=== PATIENT | male | born 1975 | race Caucasian/White ===

== ENCOUNTER 2022-05-25 15:58 | Emergency (ER) | payer OTHER ==
[~2022-05-25] VITALS: Ht 182.9 cm; Wt 129.3 kg
[2022-05-25] MEDS ORDERED: BENADRYL (16:14)
[2022-05-25] MEDS ORDERED: MELATONIN (16:14)
--- NOTE | 2022-05-25 16:30 | NUR ---
Pt arrived w/ c/o R-sided lower back pain, -11/12, started 0800 today[address] Perez for MSE.
[2022-05-25 16:44] LABS: *BILIRUBIN,URIN NEGATIVE (NEGATIVE); *BLOOD, URINE 2+ (NEGATIVE); *CLARITY,URINE CLEAR (CLEAR); *COLOR,URINE YELLOW (YELLOW); *KETONES,URINE NEGATIVE (NEGATIVE); *UROBILINOGEN,URINE 0.2 E.U./dl (NORMAL); LEUKOCYTE ESTERASE ,URINE NEGATIVE (NEGATIVE); NITRITE, URINE NEGATIVE (NEGATIVE); PH,URINE 5.5 (5.0-8.0); UGLUCOSE NEGATIVE (NEGATIVE)
[2022-05-25 16:47] LABS: HEMATOCRIT 42.7 % (36.7-47.1); MEAN CORPUSCULAR HEMOGLOBIN 29.3 uug (23.8-33.4); MEAN CORPUSCULAR VOLUME 86.1 fL (73.0-96.2); PLATELET COUNT (AUTO) 211 K/uL (152-348)
[2022-05-25 16:59] LABS: CREATININE 0.9 mg/dL (0.6-1.3); POTASSIUM 3.3 mmol/L (3.5-5.1)
[2022-05-25 17:05] LABS: BILIRUBIN,DIRECT 0.1 mg/dL (0.0-0.2); BILIRUBIN,TOTAL 0.4 mg/dL (0.2-1.0); TOTAL PROTEIN, SERUM 8.1 g/dL (6.4-8.2)
[2022-05-25] MEDS ORDERED: KETOROLAC TROMETHAMINE 30 MG INJ ONE (17:55)
[2022-05-25] MEDS ORDERED: KETOROLAC TROMETHAMINE 15 MG INJ ONE (17:56)
[2022-05-25] MEDS ORDERED: KETOROLAC TROMETHAMINE 15 MG INJ IM ONE (18:00)
--- NOTE | 2022-05-25 18:36 | NUR ---
Patient discharged to home in stable condition. Written and verbal after care instructions given. Patient verbalizes understanding of instructions. Stressed follow up or return to ER for worsening s/s.
[2022-05-25 18:37] VITALS: BP 145/70
[2022-05-25 21:58] LABS: BACTERIA,URINE NONE SEEN /HPF (NONE SEEN); RBC,URINE 20-50 /HPF (0-3); SQUAMOUS EPITHELIAL CELL,UR FEW /HPF (NONE SEEN); WBC,URINE 0-3 /HPF (0-3)
== END 2022-05-25 18:38 | disposition home or self-care (01) ==
LOC: ER 15:58
DX: R10.9 Unspecified abdominal pain (principal); R31.29 Other microscopic hematuria; R74.02 Elevation of levels of lactic acid dehydrogenase [LDH]; K76.0 Fatty (change of) liver, not elsewhere classified; K76.89 Other specified diseases of liver; Z90.49 Acquired absence of other specified parts of digestive tract; Z88.1 Allergy status to other antibiotic agents; Z88.2 Allergy status to sulfonamides; Z88.8 Allergy status to other drugs, medicaments and biological substances; Z72.0 Tobacco use
CPT/HCPCS: 99284; 74176; 80076; 80048; 81001; 83690; 85025; 36415; 96372; 87040; J1885; A4663

== ENCOUNTER 2022-05-31 17:58 | Emergency (ER) | payer OTHER ==
[~2022-05-31] VITALS: Ht 182.9 cm; Wt 129.3 kg
[~2022-05-31 17:58] MED LIST: BENADRYL; MELATONIN
[2022-05-31] MEDS ORDERED: DOXYCYCLINE HYCLATE 100 MG TABLET ONE (19:40)
[2022-05-31] MEDS ORDERED: DOXY100C5 PO (19:44)
[2022-05-31] MEDS ORDERED: DOXYCYCLINE HYCLATE 100 MG TABLET PO ONE (19:45)
--- NOTE | 2022-05-31 19:49 | NUR ---
MD at bedside, informed of plan of care, medicated as per order and aware will be discharged home. ACI given at this time, remains stable for discharge, states understanding.
[2022-05-31 19:51] VITALS: BP 143/96
== END 2022-05-31 19:51 | disposition home or self-care (01) ==
LOC: ER 17:58
DX: L03.112 Cellulitis of left axilla (principal); Z72.0 Tobacco use; Z88.1 Allergy status to other antibiotic agents; Z88.2 Allergy status to sulfonamides; Z88.8 Allergy status to other drugs, medicaments and biological substances
CPT/HCPCS: A4663

== ENCOUNTER 2022-08-06 10:51 | Emergency (ER) | payer OTHER ==
[~2022-08-06] VITALS: Ht 180.3 cm; Wt 124.7 kg
[~2022-08-06 10:51] MED LIST changes: +DOXY100C5 PO
--- NOTE | 2022-08-06 11:21 | NUR ---
PT IS IN ROOM #4B. DR RAMOS EVALUATED THE PT.
[2022-08-06] MEDS ORDERED: DEXAMETHASONE SOD PHOSPHATE 4 MG INJ IM ONE (11:30)
[2022-08-06] MEDS ORDERED: LIDOCAINE 5% PATCH TD ONE ×2 (11:30→11:39)
[2022-08-06] MEDS ORDERED: KETOROLAC TROMETHAMINE 15 MG INJ IM ONE (11:30)
[2022-08-06] MEDS ORDERED: DIAZEPAM 2 MG TABLET PO ONE (11:30)
[2022-08-06] MEDS ORDERED: DIAZEPAM 5 MG TABLET ONE (11:40)
[2022-08-06] MEDS ORDERED: KETOROLAC TROMETHAMINE 15 MG INJ ONE (11:40)
[2022-08-06] MEDS ORDERED: DEXAMETHASONE SOD PHOSPHATE 10 MG INJ ONE (11:40)
[2022-08-06] MEDS ORDERED: PRED20TA PO (12:25)
[2022-08-06] MEDS ORDERED: DIAZ5TAB PO (12:25)
--- NOTE | 2022-08-06 12:40 | NUR ---
Gave pt RX and d/c instructions, verbalized understanding.
== END 2022-08-06 13:13 | disposition home or self-care (01) ==
LOC: ER 10:51
DX: M54.42 Lumbago with sciatica, left side (principal); F17.210 Nicotine dependence, cigarettes, uncomplicated; Z90.49 Acquired absence of other specified parts of digestive tract; Z88.2 Allergy status to sulfonamides; Z88.8 Allergy status to other drugs, medicaments and biological substances; Z79.2 Long term (current) use of antibiotics; Z79.899 Other long term (current) drug therapy
CPT/HCPCS: A4663; J1100; J1885

== ENCOUNTER 2024-08-28 17:52 | Emergency (ER) | payer OTHER ==
[~2024-08-28] VITALS: Ht 182.9 cm; Wt 108.9 kg
[~2024-08-28 17:52] MED LIST changes: +DIAZ5TAB PO; +PRED20TA PO
[2024-08-28 18:21] LABS: *BILIRUBIN,URIN NEGATIVE (NEGATIVE); *BLOOD, URINE 2+ (NEGATIVE); *COLOR,URINE YELLOW (YELLOW); *KETONES,URINE NEGATIVE (NEGATIVE); *PROTEIN,URINE 1+ (NEGATIVE); *UROBILINOGEN,URINE 0.2 E.U./dl (NORMAL); LEUKOCYTE ESTERASE ,URINE 1+ (NEGATIVE); NITRITE, URINE NEGATIVE (NEGATIVE); PH,URINE 7.5 (5.0-8.0); UGLUCOSE NEGATIVE (NEGATIVE)
[2024-08-28 18:24] LABS: *CLARITY,URINE SLIGHTLY CLOUDY (CLEAR)
[2024-08-28 18:34] LABS: RBC,URINE 50-80 /HPF (0-3)
[2024-08-28 18:35] LABS: BACTERIA,URINE FEW /HPF (NONE SEEN); SQUAMOUS EPITHELIAL CELL,UR FEW /HPF (NONE SEEN); WBC,URINE 20-50 /HPF (0-3)
[2024-08-28 18:59] LABS: BASOPHILS # (AUTO) 0.1 K/UL (0.0-0.2); BASOPHILS % (AUTO) 0.6 % (0.0-2.0); EOSINOPHILS # (AUTO) 0.1 K/uL (0.0-0.7); EOSINOPHILS % (AUTO) 0.7 % (0.0-7.0); HEMATOCRIT 42.1 % (36.7-47.1); HEMOGLOBIN 14.2 g/dL (12.5-16.3); LYMPHOCYTES % (AUTO) 11.8 % (20.5-51.5); MEAN CORPUSCULAR HEMOGLOBIN 30.4 uug (23.8-33.4); MEAN CORPUSCULAR HGB CONC 34 g/dL (32.5-36.3); MEAN CORPUSCULAR VOLUME 90.2 fL (73.0-96.2); MONOCYTES # (AUTO) 0.5 K/uL (0.1-1.30); MONOCYTES % (AUTO) 2.8 % (0.0-11.0); NEUTROPHILS # (AUTO) 14.3 K/uL (1.8-8.9); NEUTROPHILS % (AUTO) 84.1 % (38.5-71.5); PLATELET COUNT (AUTO) 232 K/uL (152-348); RED BLOOD CELL COUNT(AUTO) 4.66 MIL/uL (4.06-5.63); RED CELL DISTRIBUTION WIDTH 13.6 % (12.1-16.2); WHITE BLOOD COUNT (AUTO) 16.9 K/uL (3.6-10.2)
[2024-08-28 19:00] LABS: DIFFERENTIAL COMMENT 1
[2024-08-28 19:12] LABS: ALBUMIN 3.7 g/dL (3.4-5.0); BILIRUBIN,TOTAL 0.4 mg/dL (0.2-1.0); CREATININE 1.1 mg/dL (0.6-1.3); POTASSIUM 4.4 mmol/L (3.5-5.1); TOTAL PROTEIN, SERUM 7.9 g/dL (6.4-8.2)
[2024-08-28 19:17] LABS: LACTIC ACID 2.2 mmol/L (0.4-2.0)
[2024-08-28] MEDS ORDERED: levoFLOXacin 500 MG/D5W 100 ML ONE (19:31)
[2024-08-28] MEDS: levoFLOXacin 500 MG/D5W 100ML PIGGYBACK IV ONE (19:45)
[2024-08-28] MEDS: IV NS 1000 ML 1,000 ML IV ONE (19:45)
[2024-08-28] MEDS ORDERED: IOHEXOL 300MG/ML 100 ML INFUS..BTL ONE (20:12)
[2024-08-28] MEDS ORDERED: IV NORMAL SALINE 250 ML IV ONE (20:12)
[2024-08-28] MEDS ORDERED: SWABABLE VALVE TRANSFER SET EA MC ONE (20:12)
[2024-08-29 02:09] VITALS: O2SAT 94
== END 2024-08-29 02:14 | disposition short-term general hospital (02) ==
LOC: ER 17:52
DX: A41.9 Sepsis, unspecified organism (principal); R65.20 Severe sepsis without septic shock; N10 Acute pyelonephritis; Z79.52 Long term (current) use of systemic steroids; Z88.1 Allergy status to other antibiotic agents; Z88.2 Allergy status to sulfonamides; Z88.8 Allergy status to other drugs, medicaments and biological substances; Z90.49 Acquired absence of other specified parts of digestive tract; Z87.09 Personal history of other diseases of the respiratory system; Z87.19 Personal history of other diseases of the digestive system; Z87.39 Personal history of other diseases of the musculoskeletal system and connective tissue; Z60.2 Problems related to living alone
CPT/HCPCS: 99291; 74177; 96365; 80053; 81001; 82248; 85025; 85610; 87040; 87086; 36415; 83605 ×2; J1956; Q9967; J7040; 87077; A4606; A4663